=== PATIENT | male | born 1995 | race Caucasian/White ===

== ENCOUNTER 2020-05-02 14:24 | Emergency (ER) | payer OTHER ==
[~2020-05-02] VITALS: Ht 170.2 cm; Wt 98.4 kg
[2020-05-02 14:30] VITALS: BP 145/90; Ht 170.2 cm; Wt 98.4 kg
== END 2020-05-02 14:50 | disposition other institution (70) ==
LOC: ED 14:24
DX: Z02.89 Encounter for other administrative examinations (principal)